=== PATIENT | male | born 1980 | race Caucasian/White ===

== ENCOUNTER 2018-03-13 01:43 | Emergency (ER) | payer BC ==
--- NOTE | 2018-03-13 07:26 | ED ---
Arielle Rodriguez Gabriel, scribed for Jason Graham MD on 03/13/18 at 0220 . Substance Abuse/Use - HPI Summary HPI Summary: This patient is a 37 year old M brought in by police for alcohol abuse. The pt stateshe saw two people trying to home his car so he locked him into this car and called 911. He states the somehow escaped but he is unsure. Pt just relapsed with a hx alcoholism. Patient denies CP and SOB. - History Of Current Complaint Chief Complaint: EDSubstanceAbuse Stated Complaint: 2208 Time Seen by Provider: 03/13/18 02:07 Hx Obtained From: Patient Overdose Characteristics: Oral Timing Of Abuse: Recent Cessation For A Period Of Severity Initially: Moderate Severity Currently: Moderate Aggravating Factor(s): Recent Stress Associated Signs And Symptoms: Negative - pain - Allergies/Home Medications Allergies/Adverse Reactions: Allergies Allergy/AdvReac Type Severity Reaction Status Date / Time No Known Allergies Allergy Verified 11/20/15 16:08 PMH/Surg Hx/FS Hx/Imm Hx Cardiovascular History: Denies: Hx Auto Implanted Cardiovert Defib, Hx Congestive Heart Failure Respiratory History: Denies: Hx Chronic Obstructive Pulmonary Disease (COPD), Hx Pleural Effusion , Hx Pneumonia GI History: Denies: Hx Diverticulosis, Hx Gastroesophageal Reflux Disease History: Denies: Hx Chronic Renal Failure, Hx Kidney Stones Musculoskeletal History: Denies: Hx Rheumatoid Arthritis, Hx Bursitis Sensory History: Denies: Hx Glaucoma Neurological History: Denies: Hx CVA, Hx Dementia, Hx Headaches - Surgical History Surgery Procedure, Year, and Place: HERN[facility] Infectious Disease History: No Infectious Disease History: Denies: Traveled Outside the [place] in Last 30 Days - Family History Known Family History: Negative: Diabetes, Renal Disease, Respiratory Disease, Seizure Disorder - Social History Lives: With Family Alcohol Use: Occasionally Substance Use Type: Reports: Marijuana Smoking Status (MU): Former Smoker Review of Systems Constitutional: Other - etoh abuse Negative: Chest Pain Negative: Shortness Of Breath All Other Systems Reviewed And Are Negative: Yes Physical Exam - Summary Physical Exam Summary: Appearance: Well appearing, no pain distress Skin: warm, dry, reflects adequate perfusion Head/face: normal Eyes: EOMI, MAYRA, Conjunctival injection, bidirectional horizontal nystagmus ENT: normal Neck: supple, non-tender Respiratory: CTA, breath sounds present Cardiovascular: RRR, pulses symmetrical Abdomen: non-tender, soft Bowel Sounds: present Musculoskeletal: normal, strength/ROM intact Neuro: normal, sensory motor intact, A&Ox3 Triage Information Reviewed: Yes Vital Signs On Initial Exam: Initial Vitals Temp Pulse Resp BP Pulse Ox 98 F 100 18 136/80 99 03/13/18 01:44 03/13/18 01:44 03/13/18 01:44 03/13/18 01:44 03/13/18 01:44 Vital Signs Reviewed: Yes Diagnostics - Vital Signs Vital Signs Temp Pulse Resp BP Pulse Ox 03/13/18 01:44 98 F 100 18 136/80 99 - Laboratory Lab Statement: Any lab studies that have been ordered have been reviewed, and results considered in the medical decision making process. Re-Evaluation - Re-Evaluation First Eval Re-Evaluation Time: 06:27 Change: Improved Comment: Pt's speech is clear, eyes are no longer blood shot, but gait is still unsteady. Course/Dx - Course Course Of Treatment: Patient states that he was drinking vodka tonight and has not drank in a long time. He had history of alcoholism. He showed unsteady gait, slurred speech and had bloodshot eyes. There is no evidence of trauma and none reported by police. Patient sobered somewhat here in the ER but still has unsteady gait. He is able to think clearly. He will be held until he can ambulate without unsteadiness. Signed out to oncoming ER physician. - Diagnoses Differential Diagnosis/HQI/PQRI: Positive: Alcohol Abuse, Other - Drug abuse, trauma Provider Diagnoses: Alcohol intoxication Discharge - Sign-Out/Discharge Documenting (check all that apply): Sign-Out Patient Signing out patient TO: Elvis Fan - awaiting detox - Discharge Plan Condition: Improved Referrals: Zonia Rosenthal MD [Primary Care Provider] - - Billing Disposition and Condition Condition: IMPROVED The documentation as recorded by the Arielle katz Gabriel accurately reflects the service I personally performed and the decisions made by me, Jason Graham MD.
--- NOTE | 2018-03-13 08:25 | ED ---
IYariel Tenzin, johnibed for Elvis Fan MD on 03/13/18 at 0716 . Progress - Progress Note Progress Note: This patient is a 37 year old M brought in by police for alcohol abuse. The pt states he saw two people trying to home his car so he locked him into this car and called 911. He states the somehow escaped but he is unsure. Pt just relapsed with a hx alcoholism. Patient denies CP and SOB. Pt was a sign out from Dr. Graham awaiting alcohol detox. Pt is noted to be stable now. So he is being discharged. Re-Evaluation - Re-Evaluation First Eval Re-Evaluation Time: 06:27 Change: Improved Comment: Pt's speech is clear, eyes are no longer blood shot, but gait is still unsteady. Course/Dx - Course Course Of Treatment: Mr. Klein presented on a previous shift and intoxicated state. He has been observed all night and this morning is awake, ambulating without difficulty and articulate. He is clinically sober at this time and stable. - Diagnoses Provider Diagnoses: Alcohol intoxication Discharge - Sign-Out/Discharge Documenting (check all that apply): Discharge/Admit/Transfer - Discharge., Receiving Sign-Out Receiving patient FROM: Jason Graham - awaiting detox. - Discharge Plan Condition: Stable Disposition: HOME Patient Education Materials: Alcohol Intoxication (ED) Referrals: Zonia Rosenthal MD [Primary Care Provider] - Additional Instructions: Follow up with your primary care physician in three days. Return to the emergency department for any new or worsening symptoms. - Billing Disposition and Condition Condition: STABLE Disposition: Home The documentation as recorded by the Yariel katz Tenzin accurately reflects the service I personally performed and the decisions made by me, Elvis Fan MD.
[2018-03-13 09:16] VITALS: BP 130/79
== END 2018-03-13 08:12 | disposition home or self-care (01) ==
LOC: ED 01:43
DX: F10.129 Alcohol abuse with intoxication, unspecified (principal); Z87.891 Personal history of nicotine dependence
CPT/HCPCS: 99282